=== PATIENT | female | born 1970 | race Caucasian/White ===

== ENCOUNTER 2020-05-24 13:50 | Emergency (ER) | payer OTHER ==
[~2020-05-24] VITALS: Ht 182.9 cm; Wt 84.1 kg
[~2020-05-24 13:50] MED LIST: FLO0.4C PO; HYDR-3565 PO; OMEP-84 PO; OXYB5TAB80 PO; PHEN-786 PO; SUMA25TA35 PO
[2020-05-24 14:26] VITALS: BP 146/82
== END 2020-05-24 20:29 | disposition left against medical advice (07) ==
LOC: ER 13:51
DX: G43.909 Migraine, unspecified, not intractable, without status migrainosus (principal); Z53.21 Procedure and treatment not carried out due to patient leaving prior to being seen by health care provider

== ENCOUNTER 2021-03-07 11:10 | Emergency (ER) | payer OTHER ==
[~2021-03-07] VITALS: Ht 182.9 cm; Wt 96.6 kg
[2021-03-07 11:24] VITALS: BP 121/79
[2021-03-07] MEDS ORDERED: ALBU6.7H9 INH (11:43)
[2021-03-07] MEDS ORDERED: AMOX-422 PO (11:43)
[2021-03-07] MEDS ORDERED: BENZ-38 PO (11:43)
== END 2021-03-07 12:12 | disposition home or self-care (01) ==
LOC: ER 11:11
DX: J20.9 Acute bronchitis, unspecified (principal); Z87.440 Personal history of urinary (tract) infections; Z87.442 Personal history of urinary calculi; Z90.49 Acquired absence of other specified parts of digestive tract; Z90.710 Acquired absence of both cervix and uterus; Z98.84 Bariatric surgery status; Z98.82 Breast implant status; Z79.2 Long term (current) use of antibiotics; Z79.899 Other long term (current) drug therapy
CPT/HCPCS: 71046; 99283

== ENCOUNTER 2021-03-09 10:51 | Emergency (ER) | payer OTHER ==
[~2021-03-09] VITALS: Ht 180.3 cm; Wt 81.8 kg
[~2021-03-09 10:51] MED LIST changes: +ALBU6.7H9 INH; +AMOX-422 PO; +BENZ-38 PO
[2021-03-09 10:55] VITALS: BP 122/90
[2021-03-09 14:08] LABS: BASOPHILS # (AUTO) 0.1 X10'3 (0-0.2); BASOPHILS % (AUTO) 0.8 % (0-1); EOSINOPHILS # (AUTO) 0.5 X10'3 (0-0.9); EOSINOPHILS % (AUTO) 6.4 % (0-6); HEMATOCRIT 40.2 % (35.0-45.0); HEMOGLOBIN 13.5 g/dl (12.0-16.0); LYMPHOCYTES % (AUTO) 27.4 % (21-51); MEAN CORPUSCULAR HEMOGLOBIN 30.2 PG (27.0-31.0); MEAN CORPUSCULAR HGB CONC 33.6 g/dL (33.0-36.5); MEAN CORPUSCULAR VOLUME 89.7 FL (78-98); MEAN PLATELET VOLUME 7.3 FL (7.4-10.4); MONOCYTES # (AUTO) 0.8 X10'3 (0-0.9); MONOCYTES % (AUTO) 10.9 % (2-12); NEUTROPHILS % (AUTO) 54.5 % (42-75); PLATELET COUNT 366 X10'3 (140-440); RED BLOOD COUNT 4.48 X10'6 (4.20-5.60); RED CELL DISTRIBUTION WIDTH 13.6 % (11.5-14.5); WHITE BLOOD COUNT 7.3 X10'3 (4.5-11.0)
[2021-03-09 14:23] LABS: D-DIMER 0.33 MG/L FEU (0-0.50)
[2021-03-09 14:33] LABS: ALANINE AMINOTRANSFERASE 25 U/L (12-78); ALBUMIN 3.6 G/DL (3.4-5.0); ALBUMIN/GLOBULIN RATIO 0.9 (1.1-1.5); ALKALINE PHOSPHATASE 106 IU/L (46-116); ANION GAP 8 (8-16); ASPARTATE AMINO TRANSFERASE 21 U/L (10-37); BILIRUBIN,TOTAL 0.2 MG/DL (0.1-1.0); BLOOD UREA NITROGEN 5 MG/DL (7-18); CALCIUM 8.8 MG/DL (8.5-10.1); CHLORIDE 104 MMOL/L (99-107); CREATININE 0.71 MG/DL (0.40-0.90); GLUCOSE 94 MG/DL (70-104); POTASSIUM 4.6 MMOL/L (3.5-5.1); SODIUM 139 MMOL/L (135-145); TOTAL CARBON DIOXIDE 27.4 MMOL/L (24-32); TOTAL PROTEIN 7.6 G/DL (6.4-8.2); eGFR 87 ML/MIN
--- NOTE | 2021-03-09 16:30 | NUR ---
Patient seen and assessed by provider.
== END 2021-03-09 17:11 | disposition home or self-care (01) ==
LOC: ER 10:52
DX: J20.9 Acute bronchitis, unspecified (principal); R05 Cough; R07.89 Other chest pain; R06.02 Shortness of breath; Z87.442 Personal history of urinary calculi; Z87.440 Personal history of urinary (tract) infections; Z90.89 Acquired absence of other organs; Z90.710 Acquired absence of both cervix and uterus; Z98.890 Other specified postprocedural states; Z79.2 Long term (current) use of antibiotics; Z79.899 Other long term (current) drug therapy
CPT/HCPCS: 36415; 71045; 80053; 83880; 84484; 85025; 85379; 85610; 93005; 99285

== ENCOUNTER 2021-06-27 10:21 | Emergency (ER) | payer OTHER ==
[~2021-06-27] VITALS: Ht 180.3 cm; Wt 57.7 kg
[~2021-06-27 10:21] MED LIST changes: -AMOX-422 PO; -BENZ-38 PO
[2021-06-27 10:37] VITALS: BP 114/79
== END 2021-06-27 21:39 | disposition left against medical advice (07) ==
LOC: ER 10:23
DX: R07.89 Other chest pain (principal); Z53.21 Procedure and treatment not carried out due to patient leaving prior to being seen by health care provider
CPT/HCPCS: 93005

== ENCOUNTER 2021-06-29 12:26 | Emergency (ER) | payer OTHER ==
[~2021-06-29] VITALS: Ht 182.9 cm; Wt 86.4 kg
[2021-06-29] MEDS ORDERED: morphine 4 MG/ML inj SYRINge IV PRN (12:35)
[2021-06-29] MEDS ORDERED: ondansetron/PF 4mg/2ml inj IV ONE (12:35)
[2021-06-29] MEDS ORDERED: normal saline 1000ML IV soln IVB ONE (12:35)
[2021-06-29 13:03] LABS: BASOPHILS % (AUTO) 0.4 % (0-1); EOSINOPHILS # (AUTO) 0.3 X10'3 (0-0.9); EOSINOPHILS % (AUTO) 4.1 % (0-6); HEMATOCRIT 41.4 % (35.0-45.0); HEMOGLOBIN 14.2 g/dl (12.0-16.0); LYMPHOCYTES # (AUTO) 1.9 X10'3 (1.1-4.8); LYMPHOCYTES % (AUTO) 27.1 % (21-51); MEAN CORPUSCULAR HGB CONC 34.3 g/dL (33.0-36.5); MEAN CORPUSCULAR VOLUME 87.5 FL (78-98); MEAN PLATELET VOLUME 7.6 FL (7.4-10.4); MONOCYTES # (AUTO) 0.5 X10'3 (0-0.9); MONOCYTES % (AUTO) 7.7 % (2-12); NEUTROPHILS # (AUTO) 4.2 X10'3 (1.8-7.7); NEUTROPHILS % (AUTO) 60.7 % (42-75); PLATELET COUNT 374 X10'3 (140-440); RED BLOOD COUNT 4.73 X10'6 (4.20-5.60); RED CELL DISTRIBUTION WIDTH 13.3 % (11.5-14.5); WHITE BLOOD COUNT 6.9 X10'3 (4.5-11.0)
[2021-06-29 13:15] LABS: ALANINE AMINOTRANSFERASE 21 U/L (12-78); ALBUMIN 3.4 G/DL (3.4-5.0); ALBUMIN/GLOBULIN RATIO 0.8 (1.1-1.5); ALKALINE PHOSPHATASE 113 IU/L (46-116); ANION GAP 11 (8-16); ASPARTATE AMINO TRANSFERASE 18 U/L (10-37); BILIRUBIN,TOTAL 0.4 MG/DL (0.1-1.0); BLOOD UREA NITROGEN 9 MG/DL (7-18); BUN/CREATININE RATIO 10.7 (6.6-38.0); CALCIUM 8.6 MG/DL (8.5-10.1); CHLORIDE 106 MMOL/L (99-107); CREATININE 0.84 MG/DL (0.40-0.90); GLUCOSE 155 MG/DL (70-104); LIPASE 64 U/L (73-393); POTASSIUM 4.4 MMOL/L (3.5-5.1); SODIUM 141 MMOL/L (135-145); TOTAL CARBON DIOXIDE 23.8 MMOL/L (24-32); TOTAL PROTEIN 7.7 G/DL (6.4-8.2); eGFR 71 ML/MIN
[2021-06-29 13:33] VITALS: BP 126/82
[2021-06-29] MEDS ORDERED: ONDA4TAB6 PO (14:10)
[2021-06-29] MEDS ORDERED: HYDR-3965 PO (14:10)
== END 2021-06-29 14:52 | disposition home or self-care (01) ==
LOC: ER 12:27
DX: K80.20 Calculus of gallbladder without cholecystitis without obstruction (principal); F41.9 Anxiety disorder, unspecified; F32.9 Major depressive disorder, single episode, unspecified; Z87.442 Personal history of urinary calculi; Z79.899 Other long term (current) drug therapy
CPT/HCPCS: 36415; 71045; 76700; 80053; 83690; 85025; 99285

== ENCOUNTER 2022-05-24 12:22 | Emergency (ER) | payer OTHER, MEDICARE ==
[~2022-05-24] VITALS: Ht 177.8 cm; Wt 81.8 kg
[~2022-05-24 12:22] MED LIST changes: +ONDA4TAB6 PO
[2022-05-24 13:36] LABS: BASOPHILS # (AUTO) 0.1 X10'3 (0-0.2); BASOPHILS % (AUTO) 0.7 % (0-1); EOSINOPHILS # (AUTO) 0.3 X10'3 (0-0.9); EOSINOPHILS % (AUTO) 3.3 % (0-6); HEMATOCRIT 37.8 % (35.0-45.0); HEMOGLOBIN 12.8 g/dl (12.0-16.0); LYMPHOCYTES # (AUTO) 1.4 X10'3 (1.1-4.8); LYMPHOCYTES % (AUTO) 13.7 % (21-51); MEAN CORPUSCULAR HEMOGLOBIN 28.9 PG (27.0-31.0); MEAN CORPUSCULAR HGB CONC 33.9 g/dL (33.0-36.5); MEAN CORPUSCULAR VOLUME 85.2 FL (78-98); MONOCYTES # (AUTO) 1.1 X10'3 (0-0.9); MONOCYTES % (AUTO) 11.3 % (2-12); NEUTROPHILS # (AUTO) 7.2 X10'3 (1.8-7.7); PLATELET COUNT 289 X10'3 (140-440); RED BLOOD COUNT 4.44 X10'6 (4.20-5.60); RED CELL DISTRIBUTION WIDTH 13.8 % (11.5-14.5); WHITE BLOOD COUNT 10.1 X10'3 (4.5-11.0)
[2022-05-24 13:54] LABS: ALANINE AMINOTRANSFERASE 17 U/L (12-78); ALBUMIN 3.3 G/DL (3.4-5.0); ALKALINE PHOSPHATASE 98 IU/L (46-116); ANION GAP 7 (8-16); ASPARTATE AMINO TRANSFERASE 15 U/L (10-37); BILIRUBIN,TOTAL 0.4 MG/DL (0.1-1.0); BLOOD UREA NITROGEN 9 MG/DL (7-18); BUN/CREATININE RATIO 13.2 (6.6-38.0); CALCIUM 8.1 MG/DL (8.5-10.1); CHLORIDE 107 MMOL/L (99-107); CREATININE 0.68 MG/DL (0.40-0.90); GLUCOSE 68 MG/DL (70-104); POTASSIUM 3.5 MMOL/L (3.5-5.1); SODIUM 140 MMOL/L (135-145); TOTAL CARBON DIOXIDE 26.2 MMOL/L (24-32); TOTAL PROTEIN 6.6 G/DL (6.4-8.2); eGFR > 90 ML/MIN
[2022-05-24] MEDS ORDERED: normal saline 1000ML IV soln IVB ONE (14:35)
[2022-05-24] MEDS ORDERED: morphine 4 MG/ML inj SYRINge IV PRN (14:35)
[2022-05-24] MEDS ORDERED: iohexol 350MG/ML 100ml bottle IV ONE (14:47)
[2022-05-24] MEDS ORDERED: levoFLOXACIN-Levaquin 750MG/D5 150 ML IV ONE (16:15)
[2022-05-24] MEDS ORDERED: ALBU6.7H9 INH (16:54)
[2022-05-24] MEDS ORDERED: PRED20TA PO (16:54)
[2022-05-24] MEDS ORDERED: LEVO-65 PO (16:54)
[2022-05-24] MEDS ORDERED: ondansetron/PF 4mg/2ml inj IV ONE (17:55)
[2022-05-24 18:15] VITALS: BP 93/64
== END 2022-05-24 18:17 | disposition home or self-care (01) ==
LOC: ER 12:22
DX: J18.9 Pneumonia, unspecified organism (principal); Z20.822 Contact with and (suspected) exposure to COVID-19; M79.661 Pain in right lower leg; R06.02 Shortness of breath; G89.29 Other chronic pain; F41.9 Anxiety disorder, unspecified; F32.A Depression, unspecified; Z87.442 Personal history of urinary calculi; Z87.440 Personal history of urinary (tract) infections; Z85.9 Personal history of malignant neoplasm, unspecified; Z90.89 Acquired absence of other organs; Z90.49 Acquired absence of other specified parts of digestive tract; Z90.710 Acquired absence of both cervix and uterus; Z98.890 Other specified postprocedural states; Z79.2 Long term (current) use of antibiotics; Z79.899 Other long term (current) drug therapy
CPT/HCPCS: 36415; 71045; 71275; 80053; 83880; 84484; 85025; 87635; 93005; 93971; 96361; 96365; 96375; 99285; C9803; J1956; J2270; J2405; J3490; J7030; Q9967

== ENCOUNTER 2022-06-03 12:17 | Emergency (ER) | payer OTHER, MEDICARE ==
[~2022-06-03] VITALS: Ht 180.3 cm; Wt 81.8 kg
[~2022-06-03 12:17] MED LIST changes: +LEVO-65 PO
[2022-06-03 13:06] VITALS: BP 106/58
== END 2022-06-03 15:22 | disposition home or self-care (01) ==
LOC: ER 12:19
DX: S93.411A Sprain of calcaneofibular ligament of right ankle, initial encounter (principal); M25.571 Pain in right ankle and joints of right foot; G89.29 Other chronic pain; F41.9 Anxiety disorder, unspecified; F32.A Depression, unspecified; Z87.442 Personal history of urinary calculi; Z87.440 Personal history of urinary (tract) infections; Z90.89 Acquired absence of other organs; Z90.49 Acquired absence of other specified parts of digestive tract; Z90.710 Acquired absence of both cervix and uterus; Z98.890 Other specified postprocedural states; Z85.9 Personal history of malignant neoplasm, unspecified; Z79.2 Long term (current) use of antibiotics; Z79.899 Other long term (current) drug therapy; X58.XXXA Exposure to other specified factors, initial encounter; Y93.89 Activity, other specified; Y92.89 Other specified places as the place of occurrence of the external cause; Y99.8 Other external cause status
CPT/HCPCS: 29515; 73610; 99284; L1930

== ENCOUNTER 2023-01-18 18:28 | Emergency (ER) | payer OTHER, MEDICARE ==
[~2023-01-18] VITALS: Ht 180.3 cm; Wt 72.7 kg
[~2023-01-18 18:28] MED LIST changes: +ALBU6.7H14 INH; -ALBU6.7H9 INH; -LEVO-65 PO
[2023-01-18 18:29] VITALS: BP 118/95
[2023-01-18] MEDS ORDERED: oxyCODONE/APAP 10/325mg tablet PO ONE (18:50)
[2023-01-18] MEDS ORDERED: OXYC-150 PO (19:35)
== END 2023-01-18 19:49 | disposition home or self-care (01) ==
LOC: ER 18:28
DX: J90 Pleural effusion, not elsewhere classified (principal); R07.81 Pleurodynia; F31.9 Bipolar disorder, unspecified; Z90.49 Acquired absence of other specified parts of digestive tract; Z87.442 Personal history of urinary calculi; G89.29 Other chronic pain; Z79.899 Other long term (current) drug therapy
CPT/HCPCS: 71250; 99284